=== PATIENT | female | born 1940 | race Caucasian/White ===

== ENCOUNTER 2023-11-13 20:43 | Inpatient (IN) | payer MEDICAID, MEDICARE ==
[~2023-11-13] VITALS: Ht 165.1 cm; Wt 81.6 kg
[2023-11-13] MEDS ORDERED: NS 1,000 ML IV ONE (20:55)
[2023-11-13 21:20] VITALS: TEMP 95.2
[2023-11-13 21:44] LABS: ABG BASE EXCESS -4.1 (-2.0-2.0); ABG HCO3 19.3 MMOL/L (22.0-26.0); ABG O2 SATURATION 74.7 % (95.0-99.0); ABG PARTIAL PRESSURE CO2 30.5 mmHg (35.0-45.0); ABG STANDARD HCO3 20.6 MMOL/L. (22.0-26.0); ABG TOTAL CO2 20.2 MMOL/L (23.0-31.0); ABG pH (ARTERIAL) 7.418 UNITS (7.350-7.450)
[2023-11-13 21:46] LABS: ABG PARTIAL PRESSURE O2 41.2 mmHg (75.0-100.0)
[2023-11-13] MEDS ORDERED: ISOVUE-370 76% 100ML VIAL As Ordered ONE (21:46)
[2023-11-13 22:11] LABS: CK-MB VALUE MASS 31.3 NG/ML (<3.6)
[2023-11-13 22:11] LABS: BASO # 0.1 10^3/uL (0.0-0.2); BASO % 0.3 % (0.0-1.0); EOS % 0.1 % (0.0-3.0); HEMATOCRIT 39.3 % (36.0-47.0); HEMOGLOBIN 12.5 g/dl (12.0-15.5); LYMPH # 0.8 10^3/uL (1.5-5.0); LYMPH % 5.2 % (24.0-44.0); MEAN CORPUSCULAR HEMOGLOBIN 29.3 pg (27.0-33.0); MEAN CORPUSCULAR HGB CONC 31.8 g/dl (32.0-36.5); MEAN CORPUSCULAR VOLUME 92.3 fl (80.0-96.0); MONO # 1.2 10^3/uL (0.0-0.8); MONO % 8.2 % (2.0-8.0); NEUTROPHILS # 12.7 10^3/uL (1.5-8.5); NEUTROPHILS % 85.7 % (36.0-66.0); PLATELET COUNT, AUTOMATED 261 10^3/uL (150-450); RED BLOOD COUNT 4.26 10^6/uL (4.00-5.40); WHITE BLOOD COUNT 14.8 10^3/uL (4.0-10.0)
[2023-11-13 22:14] LABS: THYROID STIMULATING HORMONE 2.601 uIU/ML (0.55-4.78)
[2023-11-13 22:18] LABS: ETHYL ALCOHOL (ETHANOL) 0.003 % (0.000-0.010); PROCALCITONIN 0.15 ng/ml
[2023-11-13 22:20] LABS: ALBUMIN 2.9 G/DL (3.2-5.2); ALKALINE PHOSPHATASE 151 U/L (46-116); ALT/SGPT 75 U/L (7.0-40); AST/SGOT 95 U/L (<34); BILIRUBIN,DIRECT 0.6 MG/DL (<0.4); BILIRUBIN,TOTAL 1.3 MG/DL (0.3-1.2); BLOOD UREA NITROGEN 65 MG/DL (9-23); CALCIUM LEVEL 8.8 MG/DL (8.3-10.6); CARBON DIOXIDE LEVEL 20 MMOL/L (20-31); CHLORIDE LEVEL 112 MMOL/L (98-107); CREATININE FOR GFR 1.22 MG/DL (0.55-1.30); GLUCOSE, FASTING 131 MG/DL (74-106); POTASSIUM SERUM 5.7 MMOL/L (3.5-5.1); SALICYLATE LEVEL < 3.0 MG/DL (<30); SODIUM LEVEL 146 MMOL/L (136-145); TOTAL PROTEIN 6.7 G/DL (5.7-8.2)
[2023-11-13 22:22] LABS: CPK CREATINE PHOSPHOKINASE 930 U/L (34-145); MB/CK RELATIVE INDEX 3.36 (< OR =4)
[2023-11-13] MEDS ORDERED: PIPERACILLIN/TAZOBACTAM SOD 4.5 GM in D5W MINI-BAG PLUS 50 ML IV ONE (22:25)
[2023-11-13] MEDS ORDERED: NS 2,450 ML in IV 1 EA IV ONE (22:25)
[2023-11-13] MEDS ORDERED: HEPARIN SOD (PORCINE) 5000UNITS/ML 1ML VIAL/SYRINGE IV ONE (22:30)
[2023-11-13] MEDS ORDERED: HEPARIN DRIP 25,000 UNITS in IV 1 EA IV SCH (22:30)
[2023-11-13] MEDS ORDERED: HEPARIN SOD (PORCINE) 5000UNITS/ML 1ML VIAL/SYRINGE IV PRN (22:30)
[2023-11-13] MEDS ORDERED: fentaNYL 100 MCG/2 ML INJECTION IV ONE (22:45)
[2023-11-13 22:55] LABS: AMPHETAMINES LEVEL URINE NEGATIVE (NEGATIVE); BARBITURATES URINE NEGATIVE (NEGATIVE); BENZODIAZEPINES URINE NEGATIVE (NEGATIVE); CANNABINOIDS URINE NEGATIVE (NEGATIVE); COCAINE METABOLITE URINE NEGATIVE (NEGATIVE); METHADONE URINE NEGATIVE (NEGATIVE); OPIATES URINE NEGATIVE (NEGATIVE); PHENCYCLIDINE URINE NEGATIVE (NEGATIVE)
[2023-11-14] MEDS ORDERED: LORazepam 1 MG TAB PO PRN (00:40)
[2023-11-14] MEDS ORDERED: ONDANSETRON 4MG 2ML VIAL IV PRN (00:40)
[2023-11-14] MEDS ORDERED: ONDANSETRON 4MG ORAL DISINTEGRATING TAB PO PRN (00:40)
[2023-11-14] MEDS ORDERED: MORPHINE 10MG/0.5ML ORAL CONCENTRATE SOLUTION U/D SL PRN (00:40)
[2023-11-14] MEDS ORDERED: ACETAMINOPHEN 650MG SUPP PR PRN (00:40)
[2023-11-14] MEDS ORDERED: ACETAMINOPHEN TAB 650MG DOSE (2X325MG) PO PRN (00:40)
[2023-11-14] MEDS ORDERED: SCOPOLAMINE 1MG TRANSDERMAL PATCH TOP PRN (00:40)
[2023-11-14] MEDS ORDERED: BISACODYL 10MG SUPP PR PRN (00:40)
[2023-11-14] MEDS ORDERED: FLEET ENEMA PR PRN (00:40)
[2023-11-14 00:47] LABS: CK-MB VALUE MASS 29.8 NG/ML (<3.6); MB/CK RELATIVE INDEX 3.1 (< OR =4)
[2023-11-14] MEDS: MORPHINE 2 MG/ML 1ML VIAL IV PRN ×2 (01:27→04:57)
[2023-11-14] MEDS: LORazepam 2 MG/ML 1ML VIAL IV PRN ×2 (01:28→04:56)
[2023-11-14 03:45] VITALS: O2SAT 89
[2023-11-14 04:45] VITALS: BP 116/56
[2023-11-14] MEDS ORDERED: MED REC IN PROGRESS XX SCH (08:10)
[2023-11-14] MEDS ORDERED: MED REC CURRENTLY UNOBTAINABLE XX SCH (08:15)
== END 2023-11-14 09:22 | disposition expired | DRG 175 ==
LOC: EDBD 20:43 → M ED 20:43 → M ED INP 11-14 00:36
PROVIDERS: ADMIT Internal Medicine; ATTEND Internal Medicine
DX: I26.99 Other pulmonary embolism without acute cor pulmonale (principal); I21.4 Non-ST elevation (NSTEMI) myocardial infarction; G93.41 Metabolic encephalopathy; J96.01 Acute respiratory failure with hypoxia; I44.2 Atrioventricular block, complete; C78.7 Secondary malignant neoplasm of liver and intrahepatic bile duct; J98.11 Atelectasis; I77.4 Celiac artery compression syndrome; N13.30 Unspecified hydronephrosis; Z51.5 Encounter for palliative care; I25.2 Old myocardial infarction; Z66 Do not resuscitate; E87.5 Hyperkalemia; R68.0 Hypothermia, not associated with low environmental temperature; I70.1 Atherosclerosis of renal artery; N20.0 Calculus of kidney; K57.90 Diverticulosis of intestine, part unspecified, without perforation or abscess without bleeding; B88.2 Other arthropod infestations; Z86.73 Personal history of transient ischemic attack (TIA), and cerebral infarction without residual deficits